=== PATIENT | male | born 1995 | race Hispanic/Latino ===

== ENCOUNTER 2017-11-02 12:09 | Emergency (ER) | payer SELFPAY | END 2017-11-02 12:54 | disposition home or self-care (01) | LOC: EDH 12:09 | DX: M67.431 Ganglion, right wrist (principal); Z72.0 Tobacco use | CPT/HCPCS: 99281 ==

== ENCOUNTER 2018-06-01 20:50 | Emergency (ER) | payer SELFPAY ==
[2018-06-01] MEDS ORDERED: SODIUM CHLORIDE 0.9% 1000ML 1,000 ML IV ONE (21:12)
[2018-06-01] MEDS ORDERED: ONDANSETRON HCL 4 MG/2 ML VIAL ONE (21:12)
[2018-06-01] MEDS ORDERED: KETOROLAC TROMETHAMINE 30MG/ML ONE (21:12)
[2018-06-01 21:13] LABS: APPEARANCE,URINE CLOUDY (CLEAR); BILIRUBIN,URINE SMALL (NEGATIVE); GLUCOSE, URINE (UA) NEGATIVE (NEGATIVE); KETONES,URINE 5 mg/dL (NEGATIVE); LEUKOCYTE ESTERASE ,URINE NEGATIVE (NEGATIVE); NITRATE,URINE POSITIVE (NEGATIVE); OCCULT BLOOD,URINE LARGE (NEGATIVE); PH,URINE 6.5 (5.0-8.0); PROTEIN,URINE 100 (NEGATIVE)
[2018-06-01 21:18] LABS: BASOPHILS % (AUTO) 0.6 % (0.0-5.0); EOSINOPHILS % (AUTO) 2.2 % (0.0-8.0); MEAN CORPUSCULAR HEMOGLOBIN 30.4 pg (27.0-33.0); MEAN CORPUSCULAR HGB CONC 34.5 g/dL (32.0-36.0); MEAN CORPUSCULAR VOLUME 88.2 fL (79-99); MONOCYTES % (AUTO) 9.5 % (3.0-13.0); NEUTROPHILS % (AUTO) 53.7 % (40.0-77.0); PLATELET COUNT (AUTO) 331 K/uL (130-400); RED BLOOD CELL COUNT(AUTO) 4.77 MIL/uL (4.50-6.20); WHITE BLOOD COUNT (AUTO) 11.6 K/uL (4.8-10.8)
[2018-06-01 21:26] LABS: POTASSIUM 3.9 mmol/L (3.5-5.1)
[2018-06-01 21:30] LABS: COLOR,URINE Amber (YELLOW)
[2018-06-01 21:31] LABS: INR 0.96 (0.85-1.15); PARTIAL THROMBOPLASTIN TIME 30.5 SEC (26.3-35.5); PROTHROMBIN TIME 10.1 SEC (9.6-11.6)
[2018-06-01 21:32] LABS: BACTERIA,URINE Few /HPF (None Seen); RBC,URINE TNTC /HPF (0-1)
[2018-06-01 21:32] LABS: ALBUMIN 4.3 g/dL (3.5-5.0); BILIRUBIN,TOTAL 0.3 mg/dL (0.2-1.0); TOTAL PROTEIN, SERUM 7.8 g/dL (6.0-8.3)
[2018-06-01 21:34] LABS: MUCUS,URINE Few LPF (None Seen); SQUAMOUS EPITHELIAL CELL,UR Rare /HPF (0-2); YEAST,URINE BUDDING Rare /HPF (None Seen)
[2018-06-01] MEDS ORDERED: TAMSULOSIN HCL 0.4 MG CAP.ER.24H ONE (22:28)
== END 2018-06-01 22:46 | disposition home or self-care (01) ==
LOC: EDH 20:50
DX: N13.2 Hydronephrosis with renal and ureteral calculous obstruction (principal); N23 Unspecified renal colic; Z72.0 Tobacco use
CPT/HCPCS: 36415; 74176; 80053; 81001; 82550; 83690; 85025; 85610; 85730; 96374; 96375; 99284; J1885; J2405; J7030

== ENCOUNTER 2018-06-11 05:05 | Inpatient (IN) | payer SELFPAY ==
[~2018-06-11] VITALS: Ht 170.2 cm; Wt 77.3 kg
[2018-06-11 05:18] LABS: APPEARANCE,URINE Clear (CLEAR); BILIRUBIN,URINE Negative (NEGATIVE); COLOR,URINE Yellow (YELLOW); GLUCOSE, URINE (UA) Negative (NEGATIVE); KETONES,URINE Trace mg/dL (NEGATIVE); LEUKOCYTE ESTERASE ,URINE Negative (NEGATIVE); NITRATE,URINE Negative (NEGATIVE); OCCULT BLOOD,URINE Large (NEGATIVE); PH,URINE 5.5 (5.0-8.0); PROTEIN,URINE Negative (NEGATIVE)
[2018-06-11] MEDS ORDERED: SODIUM CHLORIDE 0.9% 1000ML 1,000 ML IV ONE ×3 (05:33→09:13)
[2018-06-11] MEDS ORDERED: KETOROLAC TROMETHAMINE 30MG/ML ONE (05:33)
[2018-06-11] MEDS ORDERED: ONDANSETRON HCL 4 MG/2 ML VIAL ONE ×2 (05:33→08:21)
[2018-06-11 05:34] LABS: BACTERIA,URINE None Seen /HPF (None Seen); MUCUS,URINE Moderate LPF (None Seen); RBC,URINE 51-100 /HPF (0-1); SQUAMOUS EPITHELIAL CELL,UR None Seen /HPF (0-2)
[2018-06-11] MEDS ORDERED: MORPHINE SULFATE 4 MG/1ML SYG ONE ×3 (05:34→07:33)
[2018-06-11 05:41] LABS: EOSINOPHILS % (AUTO) 6.3 % (0.0-8.0); MEAN CORPUSCULAR HEMOGLOBIN 30.3 pg (27.0-33.0); MEAN CORPUSCULAR HGB CONC 34.2 g/dL (32.0-36.0); MEAN CORPUSCULAR VOLUME 88.7 fL (79-99); MONOCYTES % (AUTO) 14.5 % (3.0-13.0); NEUTROPHILS % (AUTO) 50.2 % (40.0-77.0); PLATELET COUNT (AUTO) 307 K/uL (130-400); RED BLOOD CELL COUNT(AUTO) 4.85 MIL/uL (4.50-6.20); WHITE BLOOD COUNT (AUTO) 8.8 K/uL (4.8-10.8)
[2018-06-11 05:49] LABS: CREATININE 1.3 mg/dL (0.5-1.5); POTASSIUM 4.3 mmol/L (3.5-5.1)
[2018-06-11 05:53] LABS: BILIRUBIN,TOTAL 0.3 mg/dL (0.2-1.0); TOTAL PROTEIN, SERUM 7.7 g/dL (6.0-8.3)
[2018-06-11] MEDS: SODIUM CHLORIDE 0.9% 1000ML 1,000 ML IV SCH ×2 (07:24→17:55)
[2018-06-11] MEDS ORDERED: LACTULOSE 20 GM/30 ML UDCUP PO PRN (07:30)
[2018-06-11] MEDS ORDERED: ONDANSETRON HCL 4 MG/2 ML VIAL IV PRN (07:30)
[2018-06-11] MEDS: TAMSULOSIN HCL 0.4 MG CAP.ER.24H PO SCH ×2 (07:30→09:00)
[2018-06-11] MEDS ORDERED: HYDROMORPHONE 1 MG/1 ML AMP IVP PRN ×2 (07:30→17:18)
[2018-06-11] MEDS ORDERED: HYDROMORPHONE 1 MG/1 ML AMP IV PRN ×2 (07:30→17:17)
[2018-06-11] MEDS ORDERED: HYDRALAZINE HCL 20 MG/ML VIAL IV PRN (07:30)
[2018-06-11] MEDS ORDERED: ACETAMINOPHEN 325 MG TAB PO PRN (07:30)
[2018-06-11] MEDS ORDERED: DiphenhydrAMINE HCL 50 MG/ML VIAL IV PRN (07:30)
[2018-06-11] MEDS ORDERED: HYDROMORPHONE 1 MG/1 ML AMP ONE ×2 (07:38→10:12)
[2018-06-11] MEDS ORDERED: TAMSULOSIN HCL 0.4 MG CAP.ER.24H ONE (08:18)
[2018-06-11] MEDS ORDERED: ACETAMINOPHEN 325 MG TAB ONE (08:43)
[2018-06-11 08:55] LABS: HEMOGLOBIN A1C 5.3 % (4.0-6.0)
[2018-06-11 08:56] LABS: MAGNESIUM 1.9 mg/dL (1.80-2.40); PHOSPHORUS 3.3 mg/dL (2.5-4.9)
[2018-06-11] MEDS ORDERED: SODIUM CHLORIDE 0.9% 0 ML IV ONE (08:58)
[2018-06-11] MEDS: ZOSYN 3.375GM+NS 50ML 50 ML IV SCH ×2 (13:00→20:46)
[2018-06-11] MEDS ORDERED: ZOSYN 3.375GM+NS 50ML 50 ML IV ONE (14:31)
[2018-06-11] MEDS ORDERED: SODIUM CHLORIDE 0.9% 50 ML IV ONE (14:31)
[2018-06-11 16:57] VITALS: BP 142/84
[2018-06-11 19:00] VITALS: BP 116/65
[2018-06-11 23:00] VITALS: BP 132/51
[2018-06-12 03:00] VITALS: BP 114/61
[2018-06-12] MEDS: SODIUM CHLORIDE 0.9% 1000ML 1,000 ML IV SCH ×3 (05:08→23:24)
[2018-06-12] MEDS: ZOSYN 3.375GM+NS 50ML 50 ML IV SCH ×3 (05:43→21:03)
[2018-06-12 08:00] VITALS: BP 122/73
[2018-06-12] MEDS: TAMSULOSIN HCL 0.4 MG CAP.ER.24H PO SCH (10:19)
[2018-06-12] MEDS: PANTOPRAZOLE SODIUM 40 MG TABLET.DR PO SCH (10:19)
[2018-06-12 12:00] VITALS: BP 118/74
[2018-06-12 16:00] VITALS: BP 127/64
[2018-06-12 19:00] VITALS: BP 123/74
[2018-06-12 23:00] VITALS: BP 115/70
[2018-06-13 03:00] VITALS: BP 121/73
[2018-06-13 05:02] LABS: BASOPHILS % (AUTO) 1.2 % (0.0-5.0); EOSINOPHILS % (AUTO) 3.8 % (0.0-8.0); HEMATOCRIT 41.1 % (42-54); LYMPHOCYTES % (AUTO) 32.4 % (21.0-51.0); MEAN CORPUSCULAR HEMOGLOBIN 29.7 pg (27.0-33.0); MEAN CORPUSCULAR VOLUME 87.4 fL (79-99); MONOCYTES % (AUTO) 9.3 % (3.0-13.0); NEUTROPHILS % (AUTO) 53.3 % (40.0-77.0); PLATELET COUNT (AUTO) 243 K/uL (130-400); RED CELL DISTRIBUTION WIDTH 12.8 % (11.0-15.5); WHITE BLOOD COUNT (AUTO) 8.9 K/uL (4.8-10.8)
[2018-06-13 05:07] LABS: ALBUMIN 3.7 g/dL (3.5-5.0); BILIRUBIN,TOTAL 0.8 mg/dL (0.2-1.0); CREATININE 0.9 mg/dL (0.5-1.5); TOTAL PROTEIN, SERUM 7.2 g/dL (6.0-8.3)
[2018-06-13] MEDS: ZOSYN 3.375GM+NS 50ML 50 ML IV SCH (06:20)
[2018-06-13 07:00] VITALS: BP 123/72
[2018-06-13] MEDS: PANTOPRAZOLE SODIUM 40 MG TABLET.DR PO SCH (09:51)
[2018-06-13] MEDS: TAMSULOSIN HCL 0.4 MG CAP.ER.24H PO SCH (09:51)
[2018-06-13] MEDS: SODIUM CHLORIDE 0.9% 1000ML 1,000 ML IV SCH (09:53)
[2018-06-13] MEDS ORDERED: TYL3 PO (10:47)
[2018-06-13 11:00] VITALS: BP 125/78
[2018-06-13] MEDS ORDERED: TAMS-1 PO (11:18)
[2018-06-13 16:00] VITALS: BP 126/78
== END 2018-06-13 16:27 | disposition home or self-care (01) | DRG 694 ==
LOC: EDH 05:05 → EDHIP 05:06 → 3CH 15:37
PROVIDERS: ADMIT Internal Medicine; ATTEND Internal Medicine
DX: N13.2 Hydronephrosis with renal and ureteral calculous obstruction (principal); F12.90 Cannabis use, unspecified, uncomplicated; Z87.442 Personal history of urinary calculi
CPT/HCPCS: 36415; 74176; 80053; 81001; 83036; 83605; 83735; 84100; 85025; 87088; 99291; G0378; J1170; J1885; J2270; J2405; J2543; J7030

== ENCOUNTER 2020-10-24 13:21 | Emergency (ER) | payer MEDICAID, OTHER ==
[~2020-10-24 13:21] MED LIST: TAMS-1 PO; TYL3 PO
[2020-10-24] MEDS ORDERED: CYCLOBENZAPRINE HCL 10 MG TABLET ONE (14:47)
[2020-10-24] MEDS ORDERED: KETOROLAC TROMETHAMINE 60 MG/2 ML VIAL ONE (14:47)
== END 2020-10-24 18:05 | disposition home or self-care (01) ==
LOC: EDH 13:21
DX: S39.012A Strain of muscle, fascia and tendon of lower back, initial encounter (principal); Z72.0 Tobacco use; X58.XXXA Exposure to other specified factors, initial encounter; Y93.89 Activity, other specified; Y92.89 Other specified places as the place of occurrence of the external cause; Y99.8 Other external cause status
CPT/HCPCS: 72100; 96372; 99283; J1885